=== PATIENT | male | born 1980 | race African-American/Black ===

== ENCOUNTER 2022-09-05 15:49 | Emergency (ER) | payer MEDICAID ==
[~2022-09-05] VITALS: Ht 177.8 cm; Wt 68.0 kg
[2022-09-05 16:12] VITALS: BP 130/84; PULSE 110; RESP 18; TEMP 99.8; O2SAT 99
[2022-09-05] MEDS: TETANUS, DIPHTHERIA, PERTUSSIS VAC/PF 0.5ML (>10YR OLD) IM ONE (17:00)
== END 2022-09-05 21:12 | disposition left against medical advice (07) ==
LOC: ER 15:49
DX: S01.81XA Laceration without foreign body of other part of head, initial encounter (principal); Y04.0XXA Assault by unarmed brawl or fight, initial encounter; Y93.89 Activity, other specified; Y92.89 Other specified places as the place of occurrence of the external cause; Y99.8 Other external cause status
CPT/HCPCS: 70450; 90715; 12013; 90471; 99285; Z7610